=== PATIENT | male | born 1930 | race Caucasian/White ===

== ENCOUNTER 2016-12-06 10:57 | Outpatient (CLI) | payer MEDICARE, BC | END 2016-12-06 10:58 | disposition home or self-care (01) | DX: I48.91 Unspecified atrial fibrillation (principal); Z79.01 Long term (current) use of anticoagulants ==

== ENCOUNTER 2016-12-21 10:47 | Outpatient (CLI) | payer MEDICARE, BC | END 2016-12-21 10:48 | disposition home or self-care (01) | DX: I48.91 Unspecified atrial fibrillation (principal); Z79.01 Long term (current) use of anticoagulants ==

== ENCOUNTER 2017-01-03 11:20 | Outpatient (CLI) | payer MEDICARE, BC | END 2017-01-03 11:21 | disposition home or self-care (01) | DX: I48.91 Unspecified atrial fibrillation (principal); Z79.01 Long term (current) use of anticoagulants ==

== ENCOUNTER 2017-01-09 | Outpatient (CLI) | payer MEDICARE, BC | END 2017-01-09 06:34 | disposition EMS.NT | DX: R22.42 Localized swelling, mass and lump, left lower limb (principal) ==

== ENCOUNTER 2017-03-07 13:37 | Outpatient (CLI) | payer MEDICARE, BC | END 2017-03-07 13:38 | disposition home or self-care (01) | DX: I48.91 Unspecified atrial fibrillation (principal); Z79.01 Long term (current) use of anticoagulants ==

== ENCOUNTER 2017-04-01 12:05 | Outpatient (CLI) | payer MEDICARE, BC ==
[2017-04-01 18:05] LABS: BASOPHILS # (AUTO) 0.1 10^3/uL (0.0-0.1); BASOPHILS % (AUTO) 0.9 %; EOSINOPHILS # (AUTO) 0.1 10^3/uL (0.0-0.7); EOSINOPHILS % (AUTO) 1.2 %; HCT - HEMATOCRIT 37.2 % (42.0-52.0); HGB - HEMOGLOBIN 12.1 g/dL (14.0-18.0); LYMPHOCYTES # (AUTO) 1.1 10^3/uL (1.5-3.5); LYMPHOCYTES % (AUTO) 15.9 %; MEAN CORPUSCULAR HEMOGLOBIN 29.2 pg (27.0-31.0); MEAN CORPUSCULAR HGB CONC 32.5 g/dL (32.0-36.0); MEAN CORPUSCULAR VOLUME 89.7 fL (80.0-94.0); MEAN PLATELET VOLUME 7.5 fL (7.4-11.4); MONOCYTES # (AUTO) 0.7 10^3/uL (0.0-1.0); MONOCYTES % (AUTO) 9.7 %; NEUTROPHILS % (AUTO) 72.3 %; NUCLEATED RED BLOOD CELLS AUTO 0.2 /100WBC; RED BLOOD COUNT 4.14 10^6/uL (4.70-6.10); RED CELL DISTRIBUTION WIDTH 15.3 % (12.0-15.0); UNCORRECTED WHITE BLOOD COUNT 6.9 x10^3/uL; WHITE BLOOD COUNT 6.9 x10^3/uL (4.8-10.8)
[2017-04-01 18:07] LABS: BILIRUBIN,URINE NEGATIVE (NEGATIVE); PH,URINE 5.5 PH (5.0-7.5)
[2017-04-01 18:21] LABS: UA CHARGE (STRIP ONLY) YES; UR CULTURE IF IND NOT INDICATED
[2017-04-01 18:52] LABS: ALBUMIN/GLOBULIN RATIO 1.1 (1.0-2.2); BILIRUBIN,TOTAL 1.7 mg/dL (0.2-1.0); CALCIUM 8.9 mg/dL (8.5-10.3); CREATININE 1.3 mg/dL (0.6-1.2); POTASSIUM 4.7 mmol/L (3.5-5.0); TOTAL PROTEIN 5.7 g/dL (6.7-8.2)
== END 2017-04-01 12:06 | disposition home or self-care (01) ==
LOC: LAB.R 12:05
PROVIDERS: ATTEND Internal Medicine
DX: M62.81 Muscle weakness (generalized) (principal); R63.0 Anorexia; C49.9 Malignant neoplasm of connective and soft tissue, unspecified
CPT/HCPCS: 80053; 81001; 81003; 85025; 87086

== ENCOUNTER 2017-04-04 15:07 | Inpatient (IN) | payer MEDICARE, BC ==
[2017-04-04] MEDS ORDERED: diltiaZEM INJ 5 MG/ML VIAL IVP STA ×2 (15:20→17:03)
--- NOTE | 2017-04-04 15:23 | ED Physician Documentation ---
PD HPI DYSPNEA - Stated complaint Stated Complaint: SOA/WEAKNESS - Chief complaint Chief Complaint: Resp - History obtained from History obtained from: Patient - Additional information Additional information: 87yo male accompanied by /daughter. 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 Now with 4 days of lightheaded and pallor with exertion and dyspnea with pulse ox reported at 90% on walking for home health care. Review of Systems Ten Systems: 10 systems reviewed and negative Constitutional: denies: Fever, Chills Cardiac: reports: Chest pain / pressure (complained). denies: Palpitations Respiratory: reports: Dyspnea. denies: Cough GI: denies: Abdominal Pain PD PAST MEDICAL HISTORY - Past Medical History Cardiovascular: Hypertension, High cholesterol, Coronary artery disease, [place], Atrial fibrillation Respiratory: None Neuro: Alzhiemer's, CVA, Other Endocrine/Autoimmune: None GI: None : None HEENT: Other Psych: None Musculoskeletal: None Derm: Other - Past Surgical History Past Surgical History: Yes Cardiovascular: CABG HEENT: Cataracts, Detached retina repair Derm: Skin cancer surgery - Present Medications Home Medications: Ambulatory Orders Medication Instructions Recorded Confirmed Aspirin [Adult Low Dose Aspirin EC] 81 mg PO DAILY 09/15/13 04/04/17 Atorvastatin [Lipitor] 10 mg PO DAILY 01/26/14 04/04/17 Warfarin Sodium 3 mg PO DAILY 01/26/14 04/04/17 Magnesium 125 mg PO DAILY 04/04/17 04/04/17 Warfarin Sodium [Coumadin] 1.5 mg PO DAILY 04/04/17 04/04/17 - Allergies Allergies/Adverse Reactions: Allergies Allergy/AdvReac Type Severity Reaction Status Date / Time sulfamethoxazole AdvReac Intermediate Nausea Verified 04/04/17 15:16 [From Bactrim] trimethoprim [From Bactrim] AdvReac Intermediate Nausea Verified 04/04/17 15:16 - Social History Does the pt smoke?: No Smoking Status: Never smoker Does the pt drink ETOH?: No Does the pt have substance abuse?: No - Family History Family history: reports: Non contributory - Immunizations Immunizations are current?: Yes - POLST Patient has POLST: No PD ED PE NORMAL - Vitals Vital signs reviewed: Yes (tachycardic) - General General: No acute distress, Well developed/nourished, Other (moderately demented ) - HEENT HEENT: PERRL, EOMI - Neck Neck: Supple, no meningeal sign, No bony TTP - Cardiac Cardiac: No murmur, Other (irregularly irregular) - Respiratory Respiratory: No respiratory distress, Clear bilaterally - Abdomen Abdomen: Soft, Non tender - Back Back: No CVA TTP, No spinal TTP - Derm Derm: Normal color, Warm and dry - Extremities Extremities: Other (RLE in fresh bandages but clearly larger than the left.) - 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, Normal speech - Psych Psych: Normal mood, Normal affect Results - Vitals Vitals: Vital Signs - 24 hr 04/04/17 04/04/17 04/04/17 15:13 15:35 16:46 Temperature 37 C Heart Rate 120 H 139 H 118 H Respiratory 16 18 18 Rate Blood Pressure 142/93 H 121/103 H 118/94 H O2 Saturation 100 100 98 04/04/17 17:02 Temperature Heart Rate 127 H Respiratory 18 Rate Blood Pressure 136/98 H O2 Saturation 100 Oxygen O2 Source Room air - EKG (time done) 1521 Rate: Rate (enter#) (135) Rhythm: Atrial fibrillation Intervals: LBBB Compare to prior EKG: Other (old EKG from 2014 without LBBB) Computer interpretation: Agree with computer - Labs Labs: Laboratory Tests 04/04/17 04/04/17 04/04/17 15:34 15:34 15:34 WBC 7.8 RBC 4.27 L Hgb 12.6 L Hct 37.6 L MCV 88.1 MCH 29.4 MCHC 33.4 RDW 15.3 H Plt Count 317 MPV 7.4 Neut # 5.1 Lymph # 1.5 [place] # 1.0 Eos # 0.1 Baso # 0.1 Absolute Nucleated RBC 0.02 Nucleated RBCs 0.2 PT 59.3 H INR 5.2 H* Sodium 136 Potassium 4.5 Chloride 104 Carbon Dioxide 21 Anion Gap 11.0 BUN 37 H Creatinine 1.4 H Estimated GFR (MDRD) 48 L Glucose 129 H Calcium 9.1 Magnesium 2.1 Total Bilirubin 2.5 H AST 156 H ALT 208 H Alkaline Phosphatase 319 H Total Creatine Kinase 130 CK-MB (CK-2) Troponin I B-Natriuretic Peptide Total Protein 6.4 L Albumin 3.6 Globulin 2.8 Albumin/Globulin Ratio 1.3 Lipase 31 04/04/17 04/04/17 15:34 15:34 WBC RBC Hgb Hct MCV MCH MCHC RDW Plt Count MPV Neut # Lymph # [place] # Eos # Baso # Absolute Nucleated RBC Nucleated RBCs PT INR Sodium Potassium Chloride Carbon Dioxide Anion Gap BUN Creatinine Estimated GFR (MDRD) Glucose Calcium Magnesium Total Bilirubin AST ALT Alkaline Phosphatase Total Creatine Kinase CK-MB (CK-2) 7.0 H Troponin I 0.06 B-Natriuretic Peptide 2221 H Total Protein Albumin Globulin Albumin/Globulin Ratio Lipase - Rads (name of study) two-view chest Radiology: EMP read contemporaneously (Stable cardiomegaly with small bilateral pleural effusions) PD MEDICAL DECISION MAKING - ED course ED course: 87-year-old gentleman presents with acute weakness and recent note made of outpatient labs showing decreased renal function and increased liver enzymes. He was quite weak at home and brought in and found to be in A. fib with RVR, treated with diltiazem here. He appears to be euvolemic. Increased liver enzymes are likely from CHF and hepatic congestion. His INR is supratherapeutic , likely from same. Spoke with Dr. Duncan for admission at 510 p.m. Departure - Departure Disposition: 66 [facility] DC/Xfer Clinical Impression: Atrial fibrillation with RVR, Supratherapeutic INR, Hepatic congestion, Elevated liver enzymes, Renal insufficiency Congestive heart failure Qualifiers: Congestive heart failure type: unspecified congestive heart failure type Congestive heart failure chronicity: acute Qualified Code(s): I50.9 - Heart failure, unspecified Dyspnea Qualifiers: Dyspnea type: shortness of breath Qualified Code(s): R06.02 - Shortness of breath Condition: Serious
[2017-04-04] MEDS ORDERED: diltiaZEM INJ 5 MG/ML VIAL ONE ×2 (15:38→17:05)
[2017-04-04 15:46] LABS: BASOPHILS # (AUTO) 0.1 10^3/uL (0.0-0.1); HGB - HEMOGLOBIN 12.6 g/dL (14.0-18.0); LYMPHOCYTES # (AUTO) 1.5 10^3/uL (1.5-3.5); NEUTROPHILS # (AUTO) 5.1 10^3/uL (1.5-6.6); UNCORRECTED WHITE BLOOD COUNT 7.8 x10^3/uL; WHITE BLOOD COUNT 7.8 x10^3/uL (4.8-10.8)
[2017-04-04 15:52] LABS: PT - PROTHROMBIN TIME 59.3 secs (9.9-12.6)
[2017-04-04 15:53] LABS: BASOPHILS % (AUTO) 1.1 %; EOSINOPHILS # (AUTO) 0.1 10^3/uL (0.0-0.7); EOSINOPHILS % (AUTO) 1.8 %; HCT - HEMATOCRIT 37.6 % (42.0-52.0); LYMPHOCYTES % (AUTO) 19.5 %; MEAN CORPUSCULAR HEMOGLOBIN 29.4 pg (27.0-31.0); MEAN CORPUSCULAR HGB CONC 33.4 g/dL (32.0-36.0); MEAN CORPUSCULAR VOLUME 88.1 fL (80.0-94.0); MEAN PLATELET VOLUME 7.4 fL (7.4-11.4); MONOCYTES % (AUTO) 12.7 %; NEUTROPHILS % (AUTO) 64.9 %; NUCLEATED RED BLOOD CELLS AUTO 0.2 /100WBC; RED BLOOD COUNT 4.27 10^6/uL (4.70-6.10); RED CELL DISTRIBUTION WIDTH 15.3 % (12.0-15.0)
[2017-04-04 16:00] LABS: ALBUMIN/GLOBULIN RATIO 1.3 (1.0-2.2); BILIRUBIN,TOTAL 2.5 mg/dL (0.2-1.0); CALCIUM 9.1 mg/dL (8.5-10.3); CREATININE 1.4 mg/dL (0.6-1.2); MAGNESIUM 2.1 mg/dL (1.7-2.8); POTASSIUM 4.5 mmol/L (3.5-5.0); TOTAL PROTEIN 6.4 g/dL (6.7-8.2)
[2017-04-04 16:05] LABS: INR 5.2 (0.8-1.2); TROPONIN I 0.06 ng/mL (<0.49)
--- NOTE | 2017-04-04 17:06 | XRAY Preliminary Report ---
Exam: XR Chest 2 View PA/LAT IMPRESSION: 1. Stable cardiomegaly. 2. New small bilateral posterior pleural effusions. 3. New right upper lobe lateral 3 mm nodule, could be calcified. Follow-up recommended. [facility] SITE ID: [id number]
--- NOTE | 2017-04-04 17:12 | XRAY Report ---
EXAM: CHEST RADIOGRAPHY EXAM DATE: 04/04/2017 04:47 PM. CLINICAL HISTORY: Dyspnea. COMPARISON: Chest 09-15-13. TECHNIQUE: 2 views. FINDINGS: Lungs/Pleura: New small bilateral posterior pleural effusions. New right upper lobe lateral 3 mm nodu le. Mediastinum: Stable cardiomegaly. IMPRESSION: 1. Stable cardiomegaly. 2. New small bilateral posterior pleural effusions. 3. New right upper lobe lateral 3 mm nodule, could be calcified. Follow-up recommended. [facility] Referring Provider Line: [phone] SITE ID: [id number]
[2017-04-04] MEDS ORDERED: SODIUM CHLORIDE 0.9% 250 ML IV ONE (17:14)
[2017-04-04] MEDS ORDERED: MORPHINE 2 MG/ML SYRINGE IVP PRN (17:18)
[2017-04-04] MEDS ORDERED: HYDROcod/ACETAM 5/325 MG TABLET PO PRN (17:18)
[2017-04-04] MEDS ORDERED: SODIUM CHLORIDE FLUSH 0.9% 10 ML SYRINGE IVP PRN (17:18)
[2017-04-04] MEDS ORDERED: ACETAMINOPHEN 325 MG TABLET PO PRN (17:18)
[2017-04-04] MEDS ORDERED: PROCHLORPERAZINE 10 MG/2 ML VIAL IVP PRN (17:18)
[2017-04-04] MEDS ORDERED: ONDANSETRON 4 MG/2 ML VIAL IVP PRN (17:18)
[2017-04-04] MEDS: SODIUM CHLORIDE 0.9% 1,000 ML IV ONE (18:03)
--- NOTE | 2017-04-04 18:39 | HISTORY & PHYSICAL EXAMINATION ---
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 The patient's states that over the last week the patient has become increasingly fatigued and weak. States that he has been having decreased appetite. She states she is also been hallucinating and more confused than usual. She states that over the last week she's noticed that he's had increasing shortness of air. He usually is able to walk without an assistive device but over the last week he has been using a walker at home. She states that she has noticed that he is only able to go 5-10 feet before he has to stop and can't go any further because she appear short of breath. The states that the patient was seen by home health care nurse earlier today who noted that the patient was short of breath and checked his O2 sats which were below 90% with exertion. They also noticed that the patient's hands were getting pale with ambulation. The patient was sent to the emergency department. The patient has not had any fevers or chills he has not been having any coughing and he has not had any nausea vomiting or diarrhea. Presentation to the emergency department the patient was afebrile he was however tachycardic in the 120s to 130s he was not in any respiratory distress and his EKG showed that he was in A. fib with RVR. The patient had routine labs which revealed a BNP of 2221 slightly elevated creatinine from his baseline elevated LFTs and an INR of 5.2. The patient's chest x-ray revealed that the patient had pulmonary congestion and pleural effusions. The patient was admitted for A. fib with RVR and CHF exacerbation. Review of Systems - Constitutional Constitutional: reports: Fever, Weakness, Poor appetite, Weight loss. denies: Fatigue, Chills, Diaphoresis, Night sweats, Weight gain - Eyes Eyes: denies: Pain, Irritation, Amaurosis, Blurred vision, Spots in vision, Field loss, Vision loss, Dipolpia, Corrective lenses, Other - Ears, Nose & Throat Ears, Nose & Throat: reports: Hearing loss (left ear). denies: Ear pain, Hearing aids, Tinnitus, Vertigo, Nasal pain, Nosebleeds, Nasal obstruction, Postnasal drainage, Mouth lesions, Bleeding gums - Cardiovascular Cariovascular: reports: Irregular heart rate, Chest pain, Edema, Exertional dyspnea, Decr. exercise tolerance. denies: Palpitations, Lightheadedness, Syncope, Orthopnea - Respiratory Respiratory: reports: SOB with exertion. denies: Cough, Sputum production, Wheezing, Hemoptysis, Orthopnea, SOB at rest - Gastrointestinal Gastrointestinal: denies: Abdominal pain, Abdominal distention, Constipation, Diarrhea, Change in bowel habits, Black stools, Bloody stools, Nausea, Vomiting , Coffee grounds emesis - Genitourinary Genitourinary: denies: Dysuria, Frequency, Urgency, Hematuria - Musculoskeletal Musculoskeletal: denies: Muscle pain, Back pain, Muscle aches, Stiffness, Limited range of motion, Muscle weakness, Gout - Integumentary Integumentary: denies: Rash, Pruritis, Lesions, Dryness - Neurological Neurological: reports: General weakness, Memory problems, Slurred speech. denies: Focal weakness, Headache, Dizziness, Numbness, Abnormal gait - Psychiatric Psychiatric: reports: Hallucinations. denies: Depression, Anxiety, Suicidal, Delusions - Endocrine Endocrine: denies: Polyuria, Polydypsia, Polyphagia, Intolerance to cold, Intolerance to heat - Hematologic/Lymphatic Hematologic/Lymphatic: denies: Anemia, Bruising, Petechiae, Blood clots History - Past Medical History Cardiovascular: reports: Hypertension, High cholesterol, Coronary artery disease , [place], Atrial fibrillation Respiratory: reports: None Neuro: reports: Alzhiemer's, CVA, Other Endocrine/Autoimmune: reports: None GI: reports: None : reports: None HEENT: reports: Other Psych: reports: None Musculoskeletal: reports: None Derm: reports: Other MRSA Hx?: No Other Past Medical History: sarcoma r leg with radiation, melanoma rue - Past Surgical History Cardiovascular: reports: CABG HEENT: reports: Cataracts, Detached retina repair Derm: reports: Skin cancer surgery - Family & Social History Family History: Mother: CVA/TIA, Father: CAD, Sister: CVA/TIA, Brother: CAD Living arrangement: At home Living Situation: With spouse/s.o. Social History Notes: Patient is originally from [facility] he and his moved here 20 years ago. They had 3 kids one of whom has . He has been to his for 65 years. Retired. - Substance History Use: Uses substance without health or social issues: NONE Abuse: Recurrent use of substance despite neg consequences: NONE Dependence: Experiences withdrawal or developed tolerances: NONE - POLST Patient has POLST: No POLST Status: DNR Meds/Allgy - Home Medications Home Medications: Ambulatory Orders Medication Instructions Recorded Confirmed Aspirin [Adult Low Dose Aspirin EC] 81 mg PO DAILY 09/15/13 04/04/17 Atorvastatin [Lipitor] 10 mg PO DAILY 01/26/14 04/04/17 Warfarin Sodium 3 mg PO DAILY 01/26/14 04/04/17 Magnesium 125 mg PO DAILY 04/04/17 04/04/17 Warfarin Sodium [Coumadin] 1.5 mg PO DAILY 04/04/17 04/04/17 - Allergies Allergies/Adverse Reactions: Allergies Allergy/AdvReac Type Severity Reaction Status Date / Time sulfamethoxazole AdvReac Intermediate Nausea Verified 04/04/17 15:16 [From Bactrim] trimethoprim [From Bactrim] AdvReac Intermediate Nausea Verified 04/04/17 15:16 Exam - Vital Signs Reviewed Vital Signs: Yes Vital Signs: Vital Signs x48h Temp Pulse Resp BP Pulse Ox 04/04/17 17:42 99 18 125/91 H 98 04/04/17 17:15 101 H 18 136/98 H 04/04/17 17:02 127 H 18 136/98 H 100 04/04/17 16:46 118 H 18 118/94 H 98 04/04/17 15:35 139 H 18 121/103 H 100 04/04/17 15:13 37 C 120 H 16 142/93 H 100 - Physical Exam General Appearance: positive: No acute distress, Alert, Other (demented, hard of hearin in the left ear) Eyes Bilateral: positive: Normal inspection, PERRL, EOMI, No lid inflammation, Conjunctivae nml, No scleral icterus ENT: positive: ENT inspection nml, Pharynx nml, No signs of dehydration. negative: Purulent nasal drainage, Pharyngeal erythema, Oral lesions Neck: positive: Nml inspection, Thyroid nml, Trachea midline, Other (Elevated JVD). negative: Thyromegaly, Lymphadenopathy (R), Lymphadenopathy (L) Respiratory: positive: Chest non-tender, No respiratory distress, Rales ( bibasilar). negative: Wheezes, Rhonchi Cardiovascular: positive: Irregularly irregular, Tachycardia Peripheral Pulses: positive: 2+ Abdomen: positive: Non-tender, No organomegaly, Nml bowel sounds, No distention. negative: Guarding, Rebound Back: positive: Nml inspection. negative: CVA tenderness (R), CVA tenderness (L ) Skin: positive: Color nml, Dry, Other (Skin lesion all over) Extremities: positive: Non-tender, Full ROM, Nml appearance, Pedal edema Neurologic/Psychiatric: positive: CN's nml (2-12), Motor nml, Sensation nml, Disoriented to place, Disoriented to time Conclusion/Plan - Problem List (1) Atrial fibrillation with RVR Conclusion/Plan: Presented with HR in the 130s Chronic A fib on coumadin with CHADS 2 score of 2 and history of CAD Found to have pulmonary congestion on CXR and with elevated BNP, shortness of breath and hypoxia with exertion Given IV dilt in ER with some improvement but still uncontrolled rate EKG showed A fib RVR Patients verapamil recently stopped by pcp likely cause of a fib with rvr Plan: Tele Start Dilt PO 60 mg q 6 hours IV dilt prn IV lasix for pulm congestion (2) CHF exacerbation Conclusion/Plan: Patient presented with SOA on exertion, hypoxia on ambulation at home, congestion on CXR with effusions, crackles and JVD on exam and BNP of over 2000 Likely secondary to A fib with rvr Patient echo from 2013 shows severe right heart failure with pulmonary hypertension Patient appears to have elevated LFTs secondary to liver congestion from right heart failure Plan: Control rate with PO dilt IV lasix BID 40 mg Strict I/O Daily weights Tele (3) Elevated liver enzymes Conclusion/Plan: Likely secondary to liver congestion from right heart failure Will get abdominal u/s to evaluate No abdominal tenderness Should improved with lasix and control of a fib Patient has had elevated LFTs off and on in the past Not a drinker (4) Elevated INR Conclusion/Plan: On coumadin for A fib INR 5.2 Will hold coumadin No evidence of bleeding therefore will not give Vit K (5) POLO (acute kidney injury) Conclusion/Plan: Asphalt Spreader 1.4 elevated from baseline of 1.2 Likely cardiorenal Give IV lasix Monitor aligner typewriter Avoid nephrotoxic agents (7) Hyperlipidemia Conclusion/Plan: On Lipitor Stable - Lab Results Lab results reviewed: Yes Fish Bones: 04/04/17 15:34 04/04/17 15:34 - Diagnostic Imaging Results Diagnostic Imaging Results: positive: Final report reviewed - EKG Results EKG Interpreted Independently: Yes Issues/Core Measures - Anticipated LOS Anticipated Stay Length: 2 or more midnights - DVT/VTE - Prophylaxis VTE/DVT Device ordered at admit?: Yes
[2017-04-04] MEDS: FUROSEMIDE 40 MG/4 ML VIAL IVP SCH (19:53)
[2017-04-05] MEDS: FUROSEMIDE 40 MG/4 ML VIAL IVP SCH ×3 (00:04→18:56)
[2017-04-05] MEDS: SODIUM CHLORIDE FLUSH 0.9% 10 ML SYRINGE IVP SCH ×4 (00:06→18:56)
[2017-04-05 01:11] LABS: BILIRUBIN,URINE NEGATIVE (NEGATIVE)
[2017-04-05 01:21] LABS: UA w/ MICROSCOPIC CHARGE YES; WBC,URINE 0-3 /HPF (0-3)
[2017-04-05 01:22] LABS: UR CULTURE IF IND NOT INDICATED
[2017-04-05 06:02] LABS: BASOPHILS # (AUTO) 0.1 10^3/uL (0.0-0.1); BASOPHILS % (AUTO) 0.8 %; EOSINOPHILS # (AUTO) 0.1 10^3/uL (0.0-0.7); EOSINOPHILS % (AUTO) 1.6 %; HCT - HEMATOCRIT 39.5 % (42.0-52.0); HGB - HEMOGLOBIN 12.8 g/dL (14.0-18.0); LYMPHOCYTES # (AUTO) 0.9 10^3/uL (1.5-3.5); LYMPHOCYTES % (AUTO) 14.4 %; MEAN CORPUSCULAR HEMOGLOBIN 28.8 pg (27.0-31.0); MEAN CORPUSCULAR HGB CONC 32.4 g/dL (32.0-36.0); MEAN PLATELET VOLUME 7.5 fL (7.4-11.4); MONOCYTES # (AUTO) 0.6 10^3/uL (0.0-1.0); MONOCYTES % (AUTO) 10.1 %; NEUTROPHILS # (AUTO) 4.5 10^3/uL (1.5-6.6); NEUTROPHILS % (AUTO) 73.1 %; NUCLEATED RED BLOOD CELLS AUTO 0.1 /100WBC; RED BLOOD COUNT 4.44 10^6/uL (4.70-6.10); RED CELL DISTRIBUTION WIDTH 15.4 % (12.0-15.0); UNCORRECTED WHITE BLOOD COUNT 6.2 x10^3/uL; WHITE BLOOD COUNT 6.2 x10^3/uL (4.8-10.8)
[2017-04-05 06:04] LABS: INR 4.1 (0.8-1.2); PT - PROTHROMBIN TIME 47.5 secs (9.9-12.6)
[2017-04-05 06:16] LABS: ALBUMIN/GLOBULIN RATIO 1.3 (1.0-2.2); BILIRUBIN,TOTAL 2.9 mg/dL (0.2-1.0); CALCIUM 8.9 mg/dL (8.5-10.3); CREATININE 1.4 mg/dL (0.6-1.2); MAGNESIUM 1.7 mg/dL (1.7-2.8); POTASSIUM 3.6 mmol/L (3.5-5.0)
[2017-04-05] MEDS: SODIUM CHLORIDE 0.9% 1,000 ML IV ONE (06:17)
[2017-04-05] MEDS: PANTOPRAZOLE 40 MG TABLET PO SCH (06:17)
[2017-04-05] MEDS: MAGNESIUM OXIDE 400 MG TABLET PO SCH (09:03)
[2017-04-05] MEDS: ASPIRIN EC 81 MG TABLET PO SCH (09:03)
[2017-04-05] MEDS: ATORVASTATIN 10 MG TABLET PO SCH (09:03)
[2017-04-05] MEDS: POTASSIUM CHLORIDE 20 MEQ TABLET PO SCH (09:03)
[2017-04-05] MEDS: POLYETHYLENE GLYCOL 3350 17 GM PACKET PO SCH (09:03)
--- NOTE | 2017-04-05 12:57 | Ultrasound Preliminary Report ---
Exam: US ABDOMEN LIMITED IMPRESSION: Incidental hemangioma. No evidence of cholelithiasis or biliary obstruction. [facility] SITE ID: [id number]
--- NOTE | 2017-04-05 13:00 | Ultrasound Report ---
EXAM: ABDOMEN ULTRASOUND LIMITED, RUQ EXAM DATE: 04/04/2017 04:53 PM. CLINICAL HISTORY: Elevated liver enz. COMPARISON: Ultrasound and CT 01/26/2014. TECHNIQUE: Real-time scanning was performed with static images obtained. FINDINGS: Liver: Normal in size and echotexture. 13.8 cm. Main portal vein flow: Hepatopetal. There is an echog enic nodule in the posterior superior right lobe, likely representing a hemangioma, stable from previ ous. Gallbladder: Normal. No stones, wall thickening, or sonographic Uriarte's sign. Biliary System: CBD measures 3 mm. No intrahepatic or extrahepatic ductal dilatation. Other: Trace right effusion. IMPRESSION: Incidental hemangioma. No evidence of cholelithiasis or biliary obstruction. [facility] Referring Provider Line: [phone] SITE ID: [id number]
[2017-04-05] MEDS ORDERED: chlorproMAZINE 25 MG TABLET PO PRN (16:07)
--- NOTE | 2017-04-05 16:10 | PROVIDER PROGRESS NOTE ---
Assessment/Plan - Problem List (1) Atrial fibrillation with RVR Assessment/Plan: Parvez"s rate has improved he is not as SOB. He has had a good diuresis. (2) CHF exacerbation Assessment/Plan: See above. With HR of 80s he is doing a lot better. - Current Meds Current Meds: Current Medications Generic Name Dose Route Start Last Admin Trade Name Freq PRN Reason Stop Dose Admin Aspirin 81 mg 04/05/17 09:00 04/05/17 09:03 Ecotrin PO 81 mg DAILY COLT Administration Atorvastatin Calcium 10 mg 04/05/17 09:00 04/05/17 09:03 Lipitor PO 10 mg DAILY COLT Administration Diltiazem HCl 60 mg 04/04/17 18:00 04/05/17 11:50 Cardizem PO 60 mg Q6HR COLT Administration Furosemide 40 mg 04/04/17 18:00 04/05/17 09:03 Lasix Inj 40 Mg Vial IVP 40 mg BID COLT Administration Magnesium Oxide 400 mg 04/05/17 08:00 04/05/17 09:03 Mag Ox PO 400 mg DAILYWM COLT Administration Pantoprazole Sodium 40 mg 04/05/17 07:00 04/05/17 06:17 Protonix PO 40 mg QDAC COLT Administration Polyethylene Glycol 17 gm 04/05/17 09:00 04/05/17 09:03 Miralax PO 17 gm DAILY COLT Administration Potassium Chloride 20 meq 04/05/17 08:00 04/05/17 09:03 K-Dur PO 20 meq DAILYWM COLT Administration Sodium Chloride 10 ml 04/04/17 22:00 04/05/17 09:04 Normal Saline Flush 0.9% IVP Not Given Q8HR COLT - Lab Result Fish Bone Diagrams: 04/05/17 05:10 04/05/17 05:10 - Additional Planning My Orders: My Active Orders 04/05/17 Evaluate and Treat PT [PT] Routine 04/05/17 16:07 chlorproMAZINE [Thorazine] 25 mg PO TID PRN Subjective - Subjective Patient Reports: Feeling Better, Resting Comfortably, Other (He wants to leave. However, after a family conference he has decided to stay.) Nursing Reports: Confused Objective Vital Signs: Vital Signs - 24 hr 04/04/17 04/04/17 04/04/17 17:42 18:51 19:53 Temperature 36.4 C L Heart Rate 99 Heart Rate [ 113 H Brachial] Respiratory 18 18 Rate Blood Pressure 125/91 H 128/94 H Blood Pressure 167/93 H [Left Brachial artery] O2 Saturation 98 98 04/04/17 04/05/17 04/05/17 23:55 00:04 05:05 Temperature 36.4 C L 36.6 C Heart Rate Heart Rate [ 87 90 Brachial] Respiratory 16 16 Rate Blood Pressure 102/70 Blood Pressure 102/70 110/70 [Left Brachial artery] O2 Saturation 99 98 04/05/17 04/05/17 04/05/17 06:17 09:41 11:50 Temperature 36.6 C Heart Rate Heart Rate [ 81 Brachial] Respiratory 20 Rate Blood Pressure 110/70 136/91 H Blood Pressure 115/80 [Left Brachial artery] O2 Saturation 95 04/05/17 04/05/17 13:39 15:20 Temperature 36.4 C L 36.4 C L Heart Rate Heart Rate [ 78 89 Brachial] Respiratory 18 18 Rate Blood Pressure Blood Pressure 104/71 120/77 [Left Brachial artery] O2 Saturation 97 100 Oxygen O2 Source Room air I&O (Last 24 Hrs): Intake and Output Totals x24h 04/03/17 04/04/17 04/05/17 23:59 23:59 23:59 Intake Total 180 874 Output Total 3240 Balance 180 -2366 General: Alert, No acute distress HEENT: PERRLA, EOMI Neck: Supple, No JVD Neuro: Alert, Non Focal Cardiovascular: No murmurs, Other (A fib) Respiratory: No respiratory distress, Breath sounds nml Abdomen: Normal bowel sounds, Soft Extremities: No clubbing, No cyanosis, No edema Skin: No rashes, No breakdown - Results Results: Laboratory Results WBC 6.2 x10^3/uL (4.8-10.8) 04/05/17 05:10 RBC 4.44 10^6/uL (4.70-6.10) L 04/05/17 05:10 Hgb 12.8 g/dL (14.0-18.0) L 04/05/17 05:10 Hct 39.5 % (42.0-52.0) L 04/05/17 05:10 MCV 89.0 fL (80.0-94.0) 04/05/17 05:10 MCH 28.8 pg (27.0-31.0) 04/05/17 05:10 MCHC 32.4 g/dL (32.0-36.0) 04/05/17 05:10 RDW 15.4 % (12.0-15.0) H 04/05/17 05:10 Plt Count 302 10^3/uL (130-450) 04/05/17 05:10 MPV 7.5 fL (7.4-11.4) 04/05/17 05:10 Neut # 4.5 10^3/uL (1.5-6.6) 04/05/17 05:10 Lymph # 0.9 10^3/uL (1.5-3.5) L 04/05/17 05:10 [place] # 0.6 10^3/uL (0.0-1.0) 04/05/17 05:10 Eos # 0.1 10^3/uL (0.0-0.7) 04/05/17 05:10 Baso # 0.1 10^3/uL (0.0-0.1) 04/05/17 05:10 Absolute Nucleated RBC 0.01 x10^3/uL 04/05/17 05:10 Nucleated RBCs 0.1 /100WBC 04/05/17 05:10 PT 47.5 secs (9.9-12.6) H 04/05/17 05:10 INR 4.1 (0.8-1.2) H 04/05/17 05:10 Sodium 139 mmol/L (135-145) 04/05/17 05:10 Potassium 3.6 mmol/L (3.5-5.0) 04/05/17 05:10 Chloride 104 mmol/L (101-111) 04/05/17 05:10 Carbon Dioxide 25 mmol/L (21-32) 04/05/17 05:10 Anion Gap 10.0 (6-13) 04/05/17 05:10 BUN 33 mg/dL (6-20) H 04/05/17 05:10 Creatinine 1.4 mg/dL (0.6-1.2) H 04/05/17 05:10 Estimated GFR (MDRD) 48 (>89) L 04/05/17 05:10 Glucose 119 mg/dL (70-100) H 04/05/17 05:10 Calcium 8.9 mg/dL (8.5-10.3) 04/05/17 05:10 Magnesium 1.7 mg/dL (1.7-2.8) 04/05/17 05:10 Total Bilirubin 2.9 mg/dL (0.2-1.0) H 04/05/17 05:10 AST 136 IU/L (10-42) H 04/05/17 05:10 ALT 205 IU/L (10-60) H 04/05/17 05:10 Alkaline Phosphatase 284 IU/L (42-121) H 04/05/17 05:10 Total Creatine Kinase 130 IU/L (22-269) 04/04/17 15:34 CK-MB (CK-2) 7.0 ng/mL (0.6-6.3) H 04/04/17 15:34 Troponin I 0.06 ng/mL (<0.49) 04/04/17 15:34 B-Natriuretic Peptide 1400 pg/mL (5-100) H 04/05/17 05:10 Total Protein 6.0 g/dL (6.7-8.2) L 04/05/17 05:10 Albumin 3.4 g/dL (3.2-5.5) 04/05/17 05:10 Globulin 2.6 g/dL (2.1-4.2) 04/05/17 05:10 Albumin/Globulin Ratio 1.3 (1.0-2.2) 04/05/17 05:10 Lipase 31 U/L (22-51) 04/04/17 15:34 Urine Color LT. YELLOW 04/04/17 00:35 Urine Clarity CLEAR (CLEAR) 04/04/17 00:35 Urine pH 6.0 PH (5.0-7.5) 04/04/17 00:35 Ur Specific [place] <=1.005 (1.002-1.030) 04/04/17 00:35 Urine Protein NEGATIVE mg/dL (NEGATIVE) 04/04/17 00:35 Urine Glucose (UA) NEGATIVE mg/dL (NEGATIVE) 04/04/17 00:35 Urine Ketones NEGATIVE mg/dL (NEGATIVE) 04/04/17 00:35 Urine Occult Blood SMALL (NEGATIVE) H 04/04/17 00:35 Urine Nitrite NEGATIVE (NEGATIVE) 04/04/17 00:35 Urine Bilirubin NEGATIVE (NEGATIVE) 04/04/17 00:35 Urine Urobilinogen 0.2 (NORMAL) E.U./dL (NORMAL) 04/04/17 00:35 Ur Leukocyte Esterase NEGATIVE (NEGATIVE) 04/04/17 00:35 Urine RBC 6-10 /HPF (0-5) H 04/04/17 00:35 Urine WBC 0-3 /HPF (0-3) 04/04/17 00:35 Ur Squamous Epith Cells NONE SEEN (<= Few) 04/04/17 00:35 Urine Bacteria None Seen /HPF (None Seen) 04/04/17 00:35 Ur Microscopic Review INDICATED 04/04/17 00:35 Urine Culture Comments NOT INDICATED 04/04/17 00:35
[2017-04-06 06:04] LABS: BASOPHILS # (AUTO) 0.1 10^3/uL (0.0-0.1); EOSINOPHILS # (AUTO) 0.2 10^3/uL (0.0-0.7); EOSINOPHILS % (AUTO) 2.8 %; HCT - HEMATOCRIT 39.4 % (42.0-52.0); HGB - HEMOGLOBIN 12.7 g/dL (14.0-18.0); LYMPHOCYTES # (AUTO) 0.9 10^3/uL (1.5-3.5); LYMPHOCYTES % (AUTO) 12.2 %; MEAN CORPUSCULAR HEMOGLOBIN 28.6 pg (27.0-31.0); MEAN CORPUSCULAR HGB CONC 32.3 g/dL (32.0-36.0); MEAN CORPUSCULAR VOLUME 88.5 fL (80.0-94.0); MEAN PLATELET VOLUME 7.5 fL (7.4-11.4); MONOCYTES # (AUTO) 0.8 10^3/uL (0.0-1.0); MONOCYTES % (AUTO) 10.5 %; NEUTROPHILS # (AUTO) 5.5 10^3/uL (1.5-6.6); NEUTROPHILS % (AUTO) 73.5 %; NUCLEATED RED BLOOD CELLS AUTO 0.1 /100WBC; RED BLOOD COUNT 4.45 10^6/uL (4.70-6.10); RED CELL DISTRIBUTION WIDTH 15.9 % (12.0-15.0); UNCORRECTED WHITE BLOOD COUNT 7.5 x10^3/uL; WHITE BLOOD COUNT 7.5 x10^3/uL (4.8-10.8)
[2017-04-06 06:19] LABS: ALBUMIN/GLOBULIN RATIO 1.2 (1.0-2.2); BILIRUBIN,TOTAL 2.4 mg/dL (0.2-1.0); CALCIUM 8.8 mg/dL (8.5-10.3); CREATININE 1.3 mg/dL (0.6-1.2); MAGNESIUM 1.6 mg/dL (1.7-2.8); POTASSIUM 3.1 mmol/L (3.5-5.0)
[2017-04-06] MEDS: FUROSEMIDE 40 MG/4 ML VIAL IVP SCH (06:57)
[2017-04-06] MEDS: SODIUM CHLORIDE FLUSH 0.9% 10 ML SYRINGE IVP SCH (06:57)
[2017-04-06] MEDS: PANTOPRAZOLE 40 MG TABLET PO SCH (07:15)
[2017-04-06] MEDS: POLYETHYLENE GLYCOL 3350 17 GM PACKET PO SCH (08:01)
[2017-04-06] MEDS: ATORVASTATIN 10 MG TABLET PO SCH (08:02)
[2017-04-06] MEDS: ASPIRIN EC 81 MG TABLET PO SCH (08:03)
[2017-04-06] MEDS: MAGNESIUM OXIDE 400 MG TABLET PO SCH (08:03)
[2017-04-06] MEDS: POTASSIUM CHLORIDE 20 MEQ TABLET PO SCH (08:04)
--- NOTE | 2017-04-06 10:41 | Discharge Plan ---
Discharge Plan Disposition: Home, Self Care Condition: Fair Diet: Cardiac Activity Restrictions: Activity as Tolerated Shower Restrictions: No Driving Restrictions: Yes (no driving, thank you) Weight Bearing: Full Weight Additional Instructions or Follow Up instructions: take your usual meds. Do not take your Warfarin until you get the results of an INR on Tuesday. Then talk to Dr. Mace for instructions. Call for an appt to see Dr. Mace jn the next 7 days. No Smoking: If you smoke, Please STOP! Call for help. Follow-up with: Forest Mace MD [Primary Care Provider] - 1 Week
[2017-04-06] MEDS ORDERED: POTASSIUM CHLORIDE 20 MEQ TABLET PO SCH (11:00)
[2017-04-06 11:51] VITALS: BP 96/69
--- NOTE | 2017-04-09 08:44 | DISCHARGE SUMMARY ---
DATE OF ADMISSION: 04/04/2017 DATE OF DISCHARGE: 04/06/2017 PRIMARY CARE PHYSICIAN: Forest Mace MD ADMISSION DIAGNOSES 1. Atrial fibrillation with rapid ventricular response. 2. Congestive heart failure exacerbation. 3. Elevated liver enzymes. 4. Supratherapeutic INR. 5. Acute kidney injury. 6. Hyperlipidemia. DISCHARGE DIAGNOSES 1. Atrial fibrillation with rapid ventricular response, now rate controlled and Congestive heart failure exacerbation, improved. 2. Elevated liver enzymes, probable etiology liver congestion from right heart failure, improved. 3. Supratherapeutic INR, improved. 4. Acute kidney injury, improved. 5. Hyperlipidemia, on medication. SPECIAL PROCEDURES: ECHOCARDIOGRAM impression 1. Overall left ventricular systolic function moderately impaired with ejection fraction of 30% to 40%. 2. Right ventricular systolic function is normal. 3. Severe increase in left atrial volume index. 4. Severe right atrial enlargement. 5. There is a trace to mild aortic regurgitation. 6. There is mild mitral regurgitation. 7. Mildly abnormal right heart pressures. 8. RVSP at rest is 45 mmHg. The patient's ultrasound of the abdomen impression is developing hemangioma. No evidence of cholelithiasis or biliary obstruction. HOSPITAL COURSE AND MANAGEMENT: The initial presentation, hospital emergency evaluation, and the hospitalist plan are well described in the history and physical, see copy of same. SUMMARY: This is an 87-year-old gentleman with past medical history significant for coronary artery disease post CABG and stents in 2012, atrial fibrillation, with anticoagulation using Coumadin, hypertension, hyperlipidemia, Alzheimer dementia, and sarcoma of the leg, status post radiation therapy 1 month ago. The patient came into the emergency department with shortness of breath. The patient was tachycardic in the emergency department with atrial fibrillation RVR showing an EKG. Had a BNP of 2221, elevated LFTs. Chest x-ray showed pulmonary congestion and pleural effusions and he was therefore admitted. The patient had diuresis which he lost 2 liters, had improved breathing, still to be on room air, not feel short of breath. His rate dropped into the 70s and 80s. PHYSICAL EXAMINATION VITAL SIGNS: On the day of discharge, 36.6, 85, 96/69, 17, 94% on room air. EYES: EOM within normal limits, PERRL, nonicteric. MOUTH AND THROAT: Moist mucous membranes. No other pathology. NECK: No lymphadenopathy, no JVD. HEART: Normal sinus rhythm. No murmur, rubs, clicks. LUNGS: Clear bilaterally. No wheezes or rales. ABDOMEN: Soft, nontender, thick abdominal wall. PELVIC/RECTAL: Not done. EXTREMITIES: 1-2+ edema in the mid calves, improved. NEUROLOGIC: Cognitive intact except for the global deficits of memory with his Alzheimer's. Motor intact. Sensory grossly normal. LABORATORY DATA: White count 7.5, 12 and 39 hemoglobin and hematocrit. The patient's platelets are 294. His INR is down from 5.2 to 4.0; 139 and 3.1 sodium and potassium, respectively. Chloride 102, CO2 of 27, BUN 32, creatinine 1.3, glucose 121, calcium is 8.8. Liver enzymes have decreased. AST is down from 156 to 94. ALT down from 208 to 170. Alkaline phosphatase is down from 319 to 244, Bilirubin is down from 2.9 to 2.4. BNP is down from 221 to 828. ALLERGIES 1. TRIMETHOPRIM. 2. SULFA. MEDICATIONS 1. He is to hold his warfarin until he sees Dr. Mace and will have an INR done on Tuesday. Dr. Mace's office is called. 2. He is to take his diltiazem 120 mg once a day. 3. Benadryl 25-50 mg every 6 hours as needed. 4. Lipitor 10 mg at night. 5. Lawrence 5/325 one tab every 4 hours as needed. 6. Lipitor 10 mg a day. The patient was examined on day of discharge. Time spent with collaboration with case management, nursing education with nursing collaboration, as well as patient's family education and answering questions with patient's and daughter, 35 minutes. JOB #: [id number] EXT JOB #:[id number] CARINA
== END 2017-04-06 12:16 | disposition home or self-care (01) | DRG 308 ==
LOC: ED 15:07 → MS 17:18
PROVIDERS: ADMIT Internal Medicine; ATTEND Internal Medicine
DX: I48.2 Chronic atrial fibrillation (principal); I50.23 Acute on chronic systolic (congestive) heart failure; K76.1 Chronic passive congestion of liver; N17.9 Acute kidney failure, unspecified; N28.9 Disorder of kidney and ureter, unspecified; I11.0 Hypertensive heart disease with heart failure; G30.9 Alzheimer's disease, unspecified; E78.00 Pure hypercholesterolemia, unspecified; F02.80 Dementia in other diseases classified elsewhere, unspecified severity, without behavioral disturbance, psychotic disturbance, mood disturbance, and anxiety; I25.10 Atherosclerotic heart disease of native coronary artery without angina pectoris; E78.5 Hyperlipidemia, unspecified; R74.8 Abnormal levels of other serum enzymes; C76.50 Malignant neoplasm of unspecified lower limb; I25.2 Old myocardial infarction; Z95.1 Presence of aortocoronary bypass graft; Z79.82 Long term (current) use of aspirin; Z79.01 Long term (current) use of anticoagulants; Z79.899 Other long term (current) drug therapy; Z95.5 Presence of coronary angioplasty implant and graft; Z92.3 Personal history of irradiation; Z66 Do not resuscitate
CPT/HCPCS: 36415; 71020; 76705; 80053; 81001; 81003; 82550; 82553; 83690; 83735; 83880; 84484; 85025; 85610; 87086; 93005; 93010; 93306; 96374; 96376; 99284; 99285

== ENCOUNTER 2017-04-08 15:48 | Outpatient (CLI) | payer MEDICARE, BC ==
[2017-04-08 13:44] LABS: CREATININE 1.2 mg/dL (0.6-1.2); POTASSIUM 3.9 mmol/L (3.5-5.0)
== END 2017-04-08 15:49 | disposition home or self-care (01) ==
LOC: LAB.R 15:48
PROVIDERS: ATTEND Internal Medicine
DX: I50.9 Heart failure, unspecified (principal)
CPT/HCPCS: 80048

== ENCOUNTER 2017-05-06 11:50 | Outpatient (CLI) | payer MEDICARE, BC ==
[2017-05-06 13:37] LABS: BASOPHILS # (AUTO) 0.1 10^3/uL (0.0-0.1); BASOPHILS % (AUTO) 0.9 %; EOSINOPHILS % (AUTO) 0.2 %; HGB - HEMOGLOBIN 13.7 g/dL (14.0-18.0); LYMPHOCYTES # (AUTO) 0.7 10^3/uL (1.5-3.5); LYMPHOCYTES % (AUTO) 11.7 %; MEAN CORPUSCULAR HEMOGLOBIN 28.5 pg (27.0-31.0); MEAN CORPUSCULAR HGB CONC 32.6 g/dL (32.0-36.0); MEAN CORPUSCULAR VOLUME 87.4 fL (80.0-94.0); MEAN PLATELET VOLUME 7.4 fL (7.4-11.4); MONOCYTES # (AUTO) 0.5 10^3/uL (0.0-1.0); MONOCYTES % (AUTO) 8.3 %; NEUTROPHILS # (AUTO) 4.6 10^3/uL (1.5-6.6); NEUTROPHILS % (AUTO) 78.9 %; NUCLEATED RED BLOOD CELLS AUTO 0.2 /100WBC; RED BLOOD COUNT 4.81 10^6/uL (4.70-6.10); RED CELL DISTRIBUTION WIDTH 16.7 % (12.0-15.0); UNCORRECTED WHITE BLOOD COUNT 5.8 x10^3/uL; WHITE BLOOD COUNT 5.8 x10^3/uL (4.8-10.8)
[2017-05-06 13:49] LABS: ALBUMIN/GLOBULIN RATIO 1.4 (1.0-2.2); BILIRUBIN,TOTAL 3.1 mg/dL (0.2-1.0); BUN - BLOOD UREA NITROGEN 38 mg/dL (6-20); CALCIUM 9.5 mg/dL (8.5-10.3); CARBON DIOXIDE - CO2 25 mmol/L (21-32); CHLORIDE 103 mmol/L (101-111); CREATININE 1.3 mg/dL (0.6-1.2); GFR - MDRD 52 (>89); GLUCOSE 156 mg/dL (70-100); POTASSIUM 4.7 mmol/L (3.5-5.0); SODIUM 138 mmol/L (135-145); TOTAL PROTEIN 6.3 g/dL (6.7-8.2)
[2017-05-06 14:09] LABS: BILIRUBIN,URINE NEGATIVE (NEGATIVE); PH,URINE 5.5 PH (5.0-7.5)
[2017-05-06 14:10] LABS: UA CHARGE (STRIP ONLY) YES; UR CULTURE IF IND NOT INDICATED
[2017-05-06 21:44] LABS: MAGNESIUM 2.1 mg/dL (1.7-2.8)
== END 2017-05-06 11:51 | disposition home or self-care (01) ==
LOC: LAB.R 11:50
PROVIDERS: ATTEND Internal Medicine
DX: I48.91 Unspecified atrial fibrillation (principal); R41.89 Other symptoms and signs involving cognitive functions and awareness; R50.9 Fever, unspecified; I48.2 Chronic atrial fibrillation; Z79.899 Other long term (current) drug therapy; R82.90 Unspecified abnormal findings in urine
CPT/HCPCS: 80053; 80162; 81001; 81003; 83735; 85025; 87086